=== PATIENT | female | born 1940 | race Caucasian/White ===

== ENCOUNTER 2018-02-17 13:50 | Outpatient (CLI) | payer BC, OTHER | END 2018-02-17 20:21 | disposition home or self-care (01) | LOC: SRD 13:50 | PROVIDERS: ATTEND Internal Medicine | DX: M16.12 Unilateral primary osteoarthritis, left hip (principal); Z91.81 History of falling | CPT/HCPCS: 72170-TC; 73502 ==

== ENCOUNTER 2018-04-05 12:51 | Outpatient (CLI) | payer BC, OTHER ==
[2018-04-05 13:46] LABS: BILIRUBIN,URINE NEGATIVE (NEGATIVE); CLARITY/URINE CLEAR (CLEAR); COLOR,URINE YELLOW (YELLOW); GLUCOSE,URINE NEGATIVE (NEGATIVE); KETONES,URINE 1+ (NEGATIVE); LEUKOCYTE ESTERASE ,URINE TRACE (NEGATIVE); NITRITE, URINE NEGATIVE (NEGATIVE); PH,URINE 6.5 (5.0-8.0); PROTEIN URINE NEGATIVE (NEGATIVE); UROBILINOGEN,URINE 0.2 (0.2-1.0)
[2018-04-05 13:47] LABS: BLOOD, URINE TRACE (NEGATIVE)
[2018-04-05 13:54] LABS: BACTERIA,URINE FEW /HPF (None Seen); MUCUS,URINE 1+ /LPF (None Seen)
== END 2018-04-05 20:22 | disposition home or self-care (01) ==
LOC: SLB 12:51
PROVIDERS: ATTEND Internal Medicine
DX: N13.30 Unspecified hydronephrosis (principal); N39.0 Urinary tract infection, site not specified
CPT/HCPCS: 76770; 81000-TC; 87086

== ENCOUNTER 2018-07-14 12:24 | Outpatient (CLI) | payer BC, OTHER | END 2018-07-14 19:15 | disposition home or self-care (01) | LOC: SRD 12:24 | PROVIDERS: ATTEND Internal Medicine | DX: G31.89 Other specified degenerative diseases of nervous system (principal); J34.2 Deviated nasal septum; R60.9 Edema, unspecified; W19.XXXA Unspecified fall, initial encounter; Y93.89 Activity, other specified; Y92.89 Other specified places as the place of occurrence of the external cause; Y99.8 Other external cause status | CPT/HCPCS: 70450-TC; 70486-TC ==